=== PATIENT | male | born 1995 | race Hispanic/Latino ===

== ENCOUNTER 2022-01-06 22:39 | Inpatient (IN) | payer BC, OTHER, SELFPAY ==
[2022-01-07] MEDS ORDERED: Ringers Lactate 1,000 ML IV ONE ×3 (02:28→09:32)
[2022-01-07] MEDS ORDERED: NA CHLORIDE 0.9% 100 ML ONE (02:29)
[2022-01-07] MEDS ORDERED: PIPERACIL/TAZO 3.375 GM VIAL IV ONE (02:29)
[2022-01-07] MEDS ORDERED: HYDROMORPHONE HCL 1 MG/ML INJ ONE (02:32)
[2022-01-07] MEDS: PIPER TAZO 3.375 GM in NA CHLORIDE 0.9% 100 ML IV SCH ×3 (02:49→17:17)
[2022-01-07] MEDS: HYDROMORPHONE HCL 1 MG/ML INJ IV PRN ×3 (02:59→23:30)
[2022-01-07] MEDS ORDERED: Ringers Lactate 1,000 ML IV SCH (03:00)
[2022-01-07] MEDS ORDERED: CEFOXITIN SODIUM 1 GM/VIAL ONE (06:57)
[2022-01-07] MEDS ORDERED: SUCCINYLCHOLINE 20 MG/ML (10 ML) IV ONE (06:59)
[2022-01-07] MEDS ORDERED: propofoL 200 MG/20 ML VIAL IV ONE ×2 (07:03→07:18)
[2022-01-07] MEDS ORDERED: MIDAZOLAM HCL 2 MG/2 ML INJ ONE (07:03)
[2022-01-07] MEDS ORDERED: FENTANYL CITR 100 MCG/2 ML ONE ×2 (07:03→08:11)
[2022-01-07] MEDS ORDERED: ROCURONIUM 50 MG/5 ML VIAL IV ONE ×2 (07:03→07:51)
--- NOTE | 2022-01-07 07:03 | P.HP ---
Date of Service: 01/07/22 Chief complaint: Abdominal pain History of present Illness: 25-year-old gentleman comes in with diffuse abdominal pain which started 36 hours ago and now localizing to the right lower quadrant. Patient had 1 episode of vomiting and anorexia. Patient denies any diarrhea or constipation currently. Patient does not have blood in his stool or dysuria or hematuria. Patient denies sore throat, runny nose, headaches, dizziness, chest pain, fever or chills. Review of systems: Otherwise unremarkable Past medical history: Negative Past surgical history: Tonsillectomy and adenoidectomy Allergies: None Social history: Patient denies alcohol and tobacco use Family history: Diabetes and heart disease Vital signs: Stable, afebrile Physical exam: Awake alert oriented x3 Head and neck: Cranial nerves II through XII grossly within normal limits, no neck masses, no JVD, throat clear and neck supple Chest: Clear Heart: S1-S2 Abdomen: Soft, nondistended, positive bowel sounds with Rovsing's sign and right lower quadrant tenderness with rebound. No rigidity or guarding noted Extremity: Neurovascular intact, nontender Neuro: Nonfocal Diagnostic data: White count was 14,[address] of the abdomen and pelvis is consistent with acute appendicitis without evidence of perforation or abscess Assessment: Acute appendicitis Plan/recommendation: Admit, n.p.o., IV fluids, IV antibiotics and to the OR for laparoscopic appendectomy possible open. Patient understands risk, benefits and alternatives and agrees to procedure. CC:
[2022-01-07] MEDS ORDERED: NEOSTIGMINE 1 MG/ML -10 ML VIAL ONE (07:51)
[2022-01-07] MEDS ORDERED: GLYCOPYRROLATE 0.2 MG/ML SYR ONE (08:11)
[2022-01-07] MEDS ORDERED: KETOROLAC 30 MG/ML INJ ONE (09:16)
--- NOTE | 2022-01-07 09:49 | P.OP ---
Date of Service: 01/07/22 Preop diagnosis: Acute appendicitis Postop diagnosis: Acute suppurative retrocecal appendicitis Procedure performed: Diagnostic laparoscopy, open appendectomy Surgeon: Elvin Fisher MD Manager Trading: Vivian PETERSON Estimated blood loss: Minimal Specimen: Appendix Findings: As above Anesthesia: General Complications: None Drains: THONG #10 flat Fluids and blood products: Nonapplicable Disposition: Recovery room Operative note: Patient brought to the OR and placed in the supine position. General anesthesia begun. Patient prepped and draped in the usual sterile fashion. Marcaine 0.5% infiltrated locally. 15 blade used to make a 1 cm supraumbilical midline incision. Subcutaneous tissue divided and fascia identified and divided. #1 Vicryl stay suture placed.. Peritoneal cavity entered with sharp and blunt dissection. Pneumoperitoneum established. Then 5 mm trocar placed in the suprapubic region and in the left lower quadrant. Laparoscopy revealed acute suppurative fibrinous exudate on the small bowel near the cecum and the ileocecal valve. Minimal fluid was seen in the pelvis some dilatation of the small bowel. The appendix; however, could not be well visualized as it was retrocecal and leading towards medially. We could not mobilize the appendix adequately laparoscopically without risking injury to the cecum or the small bowel. Therefore, I made a decision to convert this into an open procedure. The tissue was very indurated and adhered to the sidewalls. A 8 cm McBurney's incision was made in the right lower quadrant. Marcaine 0.5% was infiltrated locally prior to the incision. The subcutaneous tissue was identified and divided. Fascia identified and divided. Muscle retracted out of the field of dissection. Peritoneal cavity entered by dividing the posterior sheath. Then sharp and blunt dissection utilized to mobilize the cecum and bring the ileocecal valve and the cecum as much as we could into the field of operation. The appendix was dilated, indurated and retrocecal with medial extension. Base of the appendix on the cecum was identified. Endo KENNETH stapling device was used to divide the mesoappendix as well as the base of the appendix. The appendix was removed and sent to pathology. Entire wound was irrigated, effluent was clear and there was no evidence of bleeding or bowel injury appreciated. As there was a lot of inflammation and extensive dissection was done in this area, I decided to place a John-Owens #10 flat into the right lower quadrant and pelvis. Then the posterior sheath was closed with 0 chromic. Fascia was closed with #2 nylon. Stay sutures at the umbilicus was closed by tying the Vicryl sutures together. All subcutaneous wounds irrigated and bleeding controlled cautery. 3-0 chromic used to reapproximate subcutaneous tissue and denae used to close skin. Sterile dressing applied. Patient awakened and taken to recovery room in good general condition. CC:
[2022-01-07] MEDS: HYDROMORPHONE HCL 1 MG/ML INJ ONE ×2 (09:57→10:06)
[2022-01-07] MEDS: Ringers Lactate 1,000 ML IV SCH ×2 (10:02→17:17)
[2022-01-07] MEDS: FENTANYL CITR 100 MCG/2 ML ONE ×2 (10:17→10:23)
[2022-01-07] MEDS: HYDROCODONE/APAP 7.5/325 MG TAB PO PRN (19:28)
[2022-01-07] MEDS ORDERED: ACETAMINOPHEN 500 MG TAB PO PRN (21:16)
[2022-01-08] MEDS: Ringers Lactate 1,000 ML IV SCH ×4 (00:01→19:59)
[2022-01-08] MEDS: HYDROMORPHONE HCL 1 MG/ML INJ IV PRN ×2 (03:28→23:30)
[2022-01-08 04:36] LABS: Absolute Lymphocytes (CBC) 1.5 K/uL (0.7-4.9); Hematocrit 41.1 % (39.6-49.0); Lymphocytes % 14.3 % (15.3-44.8); MPV 8.1 fL (7.6-11.3); RBC Red Blood Cell Count 4.93 M/uL (4.33-5.43)
[2022-01-08] MEDS: HYDROCODONE/APAP 7.5/325 MG TAB PO PRN ×4 (04:38→21:37)
[2022-01-08 04:54] LABS: Magnesium 1.9 mg/dL (1.8-2.4); Phosphorus 2.5 mg/dL (2.5-4.9); Potassium 3.4 mmol/L (3.5-5.1)
[2022-01-08] MEDS: PIPER TAZO 3.375 GM in NA CHLORIDE 0.9% 100 ML IV SCH ×4 (07:42→17:08)
[2022-01-08] MEDS ORDERED: POTASSIUM CL SA 10 MEQ TAB PO ONE ×2 (09:00→16:16)
--- NOTE | 2022-01-08 12:20 | PN ---
Date of Progress Note: 01/08/2022 Subjective: The patient is awake and alert, complains of pain when he is moving around. Otherwise, there is no pain. Tolerating his full liquid diet. His vitals are stable except for a slight increa se in the pulse rate of 107. He is afebrile currently. He did have fever last night. He was given Tylenol. Laboratory Data: Reviewed. His white count is 10.4, slight left shift. His potassium is slightly l ow which is being replaced. Objective: Abdomen: Soft, nondistended. Positive bowel sounds. Positive incisional tenderness. N o evidence of peritonitis. Please note THONG drain is putting out 40 cc of serosanguineous fluid and th e dressing is clean, dry, and intact. Assessment: Status post open appendectomy. Recommendations: Continue IV fluids, IV antibiotics, and advance diet as tolerated. Once the patien t is tolerating a regular diet, IV fluids can be tapered off. The patient was encouraged to ambulate . He needs incentive spirometry and continue DVT prophylaxis with SCDs and we will start the patient on Lovenox as well. /MODL Voice ID: [id number] Report ID: [id number]
[2022-01-08] MEDS: ONDANSETRON 4 MG/2 ML VIAL IV PRN (23:31)
[2022-01-09] MEDS: PIPER TAZO 3.375 GM in NA CHLORIDE 0.9% 100 ML IV SCH ×3 (00:48→16:10)
[2022-01-09] MEDS: Ringers Lactate 1,000 ML IV SCH ×3 (04:31→18:02)
[2022-01-09 04:56] LABS: Absolute Lymphocytes (CBC) 1.1 K/uL (0.7-4.9); Hematocrit 47.7 % (39.6-49.0); Lymphocytes % 7.7 % (15.3-44.8); MPV 8.8 fL (7.6-11.3); RBC Red Blood Cell Count 5.73 M/uL (4.33-5.43)
[2022-01-09 05:10] LABS: Potassium 3.9 mmol/L (3.5-5.1)
[2022-01-09] MEDS: ONDANSETRON 4 MG/2 ML VIAL IV PRN ×2 (06:01→20:45)
[2022-01-09] MEDS: HYDROMORPHONE HCL 1 MG/ML INJ IV PRN ×2 (06:06→20:45)
[2022-01-09] MEDS ORDERED: KCL 20 MEQ/100 mL IVPB 20 MEQ/100 ML BAG IV SCH (07:00)
[2022-01-09] MEDS: HYDROCODONE/APAP 7.5/325 MG TAB PO PRN (07:55)
--- NOTE | 2022-01-09 10:52 | P.PN ---
Date of Service: 01/09/22 Subjective: Patient is having nausea and vomiting. NG tube was placed and large amount of gastric contents were evacuated. Patient feels better. Objective: Vitals stable, afebrileWhite count is 14.2 and THONG has put out 540 cc of serosanguineous fluid. Abdomen: Soft, slightly distended, hypoactive bowel sounds with minimal tendern ess and no peritonitisdressing is clean dry and intact Assessment: Status post open appendectomy, with likely postop ileus Plan: N.p.o., and IV fluid, IV antibiotics, NG tube and we will check an abdominal x-ray. Encourage ambulation, incentive spirometry and DVT prophylaxis. CC:
--- NOTE | 2022-01-09 12:25 | RAD REPORT ---
EXAM DESCRIPTION: RAD - Abdomen W Erect - 01/09/2022 10:57 am CLINICAL HISTORY: Abdominal pain/vomiting FINDINGS: Nasogastric tube is present within the gastric fundus. Postsurgical changes right lower quadrant Several loops of small bowel are mildly dilated. Air within the colon is diminished. Given the recent surgery this probably represents an adynamic ileus and can be monitored on a subsequ ent examination if symptoms persist
[2022-01-10] MEDS: PIPER TAZO 3.375 GM in NA CHLORIDE 0.9% 100 ML IV SCH ×3 (00:43→16:36)
[2022-01-10] MEDS: Ringers Lactate 1,000 ML IV SCH ×3 (00:43→18:02)
[2022-01-10] MEDS: HYDROMORPHONE HCL 1 MG/ML INJ IV PRN ×3 (00:54→22:20)
[2022-01-10 06:04] LABS: Absolute Lymphocytes (CBC) 2.3 K/uL (0.7-4.9); Hematocrit 47.4 % (39.6-49.0); Lymphocytes % 15.9 % (15.3-44.8); MPV 8.1 fL (7.6-11.3); RBC Red Blood Cell Count 5.65 M/uL (4.33-5.43)
[2022-01-10 06:13] LABS: Potassium 3.6 mmol/L (3.5-5.1)
[2022-01-10] MEDS: ONDANSETRON 4 MG/2 ML VIAL IV PRN (07:22)
--- NOTE | 2022-01-10 08:19 | P.PN ---
Date of Service: 01/10/22 Subjective: Patient has NG tube in place. No nausea or vomiting. Patient has not passed gas. Objective: Vitals stable, afebrileWhite count is 14.3 and THONG has put out 350 cc of serosanguineous fluid. NG output fairly large at this time. Abdominal x- ray reviewed. Abdomen: Soft, slightly distended, hypoactive bowel sounds with minimal tenderness and no peritonitisdressing is clean dry and intact Assessment: Status post open appendectomy, with postop adynamic ileus Plan: N.p.o., and IV fluid, IV antibiotics, NG tube and we will check an abdominal x-ray today. Encourage ambulation, incentive spirometry and DVT prophylaxis. Start Protonix. When the patient's clinical condition improves, we will clamp the NG tube and start clear liquid diet. CC:
--- NOTE | 2022-01-10 08:51 | RAD REPORT ---
EXAM DESCRIPTION: RAD - Abdomen W Erect - 01/10/2022 8:42 am CLINICAL HISTORY: Follow up ileus COMPARISON: Abdomen W Erect dated 01/09/2022 FINDINGS/IMPRESSION: Mild worsening of the presumed ileus with increased gaseous distention of the s mall bowel. Multiple air-fluid levels are present. Surgical drain in the right lower quadrant.
[2022-01-10] MEDS: PANTOPRAZOLE 40 MG INJ IVP SCH (08:53)
[2022-01-10] MEDS: SODIUM CHLORIDE 0.9% 10ML INJ IV SCH (08:53)
[2022-01-10] MEDS ORDERED: KCL 20 MEQ/100 mL IVPB 20 MEQ/100 ML BAG IV SCH (09:00)
[2022-01-10] MEDS ORDERED: POTASSIUM CL SA 10 MEQ TAB PO ONE (09:00)
[2022-01-11] MEDS: PIPER TAZO 3.375 GM in NA CHLORIDE 0.9% 100 ML IV SCH ×3 (00:25→17:47)
[2022-01-11] MEDS: Ringers Lactate 1,000 ML IV SCH ×4 (00:26→23:03)
[2022-01-11 04:08] LABS: Absolute Lymphocytes (CBC) 1.8 K/uL (0.7-4.9); Hematocrit 40.2 % (39.6-49.0); Lymphocytes % 14.8 % (15.3-44.8); RBC Red Blood Cell Count 4.86 M/uL (4.33-5.43)
[2022-01-11 04:17] LABS: Potassium 3.2 mmol/L (3.5-5.1)
--- NOTE | 2022-01-11 08:09 | RAD REPORT ---
EXAM DESCRIPTION: RAD - Abdomen W Erect - 01/11/2022 6:28 am CLINICAL HISTORY: follow up ileus Pain COMPARISON: Abdomen W Erect dated 01/10/2022; Abdomen W Erect dated 01/09/2022 FINDINGS: Multiple prominent small bowel loops are again noted in the central abdomen. The small bow el loops remain dilated and appear stacked/organized. This raises the possibility of mechanical small -bowel obstruction given the appearance. Nasogastric tube is in the stomach. Right lower quadrant carmine in also present.
[2022-01-11] MEDS: SODIUM CHLORIDE 0.9% 10ML INJ IV SCH (09:00)
[2022-01-11] MEDS: PANTOPRAZOLE 40 MG INJ IVP SCH (09:01)
[2022-01-11] MEDS: KCL 20 MEQ/100 mL IVPB 20 MEQ/100 ML BAG IV SCH ×2 (09:02→10:24)
[2022-01-11] MEDS: HYDROMORPHONE HCL 1 MG/ML INJ IV PRN ×3 (09:12→21:58)
--- NOTE | 2022-01-11 09:55 | P.PN ---
Date of Service: 01/11/22 Subjective: Patient is passing gas and has had bowel movement. Patient's NG tube was clamped last night and patient was able to tolerate sips of clear liquids with minimal residual output. Objective: Vitals stable, afebrileWhite count is 12 and THONG has put out 100 cc of serosanguineous fluid over the last shift. Abdominal x-ray reviewed and it shows possible obstruction. Abdomen: Soft, nondistended, nontender with positive bowel soundsdressing is clean dry and intact. Wound is clean dry and intact Assessment: Status post open appendectomy, with postop adynamic ileus possible obstruction Plan: As the x-ray is concerning for obstruction, we will get a small bowel series. Continue IV antibiotics. Encourage ambulation and incentive spirometry. I will be transferring the care of this patient to Dr. Kinney as I am leaving [facility]. Details of this case were discussed with Dr. Kinney. We will make further recommendation after the small bowel series is done. If the patient does not open up soon, patient may require parenteral nutrition. CC:
--- NOTE | 2022-01-11 17:17 | RAD REPORT ---
EXAM DESCRIPTION: RAD - Small Bowel Series - 01/11/2022 3:29 pm CLINICAL HISTORY: R/O Obstruction COMPARISON: No comparisons FINDINGS: Contrast administered through the patient's NG tube. The contrast did not progress beyond the dilated small bowel at the 90 minutes [place]. The small bowel remain dilated. In character tube in the stomach Surgical drain in the right lower quadrant. No fluoroscopy was performed. Total images acquired: 11 IMPRESSION: Persistently dilated small bowel. The contrast proceeded very slowly. At 90 minutes, the decision was made to return the patient to the floor. The patient should have an abdominal radiograp h tomorrow morning to assess for any forward movement of contrast in order to exclude a bowel obstruc tion.
[2022-01-11] MEDS: ONDANSETRON 4 MG/2 ML VIAL IV PRN (21:59)
[2022-01-11] MEDS ORDERED: KCL 20 MEQ/100 mL IVPB 20 MEQ/100 ML BAG IV SCH (23:00)
[2022-01-12] MEDS: PIPER TAZO 3.375 GM in NA CHLORIDE 0.9% 100 ML IV SCH ×3 (01:09→17:16)
[2022-01-12 04:04] LABS: Absolute Lymphocytes (CBC) 1.8 K/uL (0.7-4.9); Hematocrit 42.1 % (39.6-49.0); Lymphocytes % 12.6 % (15.3-44.8); MPV 7.8 fL (7.6-11.3); RBC Red Blood Cell Count 5.03 M/uL (4.33-5.43)
[2022-01-12 04:15] LABS: Magnesium 2.1 mg/dL (1.8-2.4); Phosphorus 3.4 mg/dL (2.5-4.9); Potassium 3.5 mmol/L (3.5-5.1)
[2022-01-12 05:28] LABS: Blood Morphology Comment NOT SEEN (NOT SEEN); Platelet Estimate ADEQ
[2022-01-12] MEDS: HYDROCODONE/APAP 7.5/325 MG TAB PO PRN ×2 (06:44→18:34)
[2022-01-12] MEDS ORDERED: KCL 20 MEQ/100 mL IVPB 20 MEQ/100 ML BAG IV SCH (07:00)
--- NOTE | 2022-01-12 07:54 | RAD REPORT ---
EXAM DESCRIPTION: RAD - Abdomen 1 View (KUB) - 01/12/2022 7:41 am CLINICAL HISTORY: f/u from 01/11 exam COMPARISON: Small Bowel Series dated 01/11/2022 FINDINGS: No significant antegrade movement of enteric contrast within the small bowel which remains significantly dilated. Surgical drain in the right lower quadrant. IMPRESSION: Minimal progression of enteric contrast compared with the exam from yesterday. This eith er represents a high-grade bowel obstruction or severe ileus.
[2022-01-12] MEDS: Ringers Lactate 1,000 ML IV SCH ×2 (08:38→17:17)
[2022-01-12] MEDS: PANTOPRAZOLE 40 MG INJ IVP SCH (08:39)
[2022-01-12] MEDS: SODIUM CHLORIDE 0.9% 10ML INJ IV SCH (08:42)
[2022-01-13] MEDS: PIPER TAZO 3.375 GM in NA CHLORIDE 0.9% 100 ML IV SCH (01:41)
[2022-01-13] MEDS: Ringers Lactate 1,000 ML IV SCH ×4 (02:04→21:44)
[2022-01-13] MEDS: HYDROCODONE/APAP 7.5/325 MG TAB PO PRN ×3 (02:14→15:20)
[2022-01-13] MEDS: PANTOPRAZOLE 40 MG INJ IVP SCH (08:05)
[2022-01-13] MEDS: SODIUM CHLORIDE 0.9% 10ML INJ IV SCH (08:05)
--- NOTE | 2022-01-13 08:47 | P.PN ---
Subjective Date of Service: 01/12/22 Subjective: Ambulating, Other (passing flatus) Review of Systems General: Fever (no) Respiratory: Unremarkable Gastrointestinal: Distention, As per HPI Genitourinary: Unremarkable Integumentary: Unremarkable Physical Examination - Vital Signs Temperature: 97.5 F Blood Pressure: 148/71 Pulse: 83 Respirations: 16 Pulse Ox (%): 97 - Physical Exam General: Alert, In no apparent distress, Oriented x3, Cooperative HEENT: PERRLA, EOMI Neck: Supple Cardiovascular: No edema, Normal pulses Gastrointestinal: Hypoactive, Distended Musculoskeletal: No erythema, No tenderness, No warmth Integumentary: No rashes, No breakdown, No erythema, No warmth, No cyanosis Neurological: Normal speech - Studies Laboratory Data (last 24 hrs) 01/13/22 05:53: Sodium 135 L, Potassium 4.0, BUN 11, Creatinine 0.65, Glucose 95 Imagings Data: Xray reviewed Assessment And Plan - Plan xray tomorrow if improvemyt then d/c NGT 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 KIMMY robinsx
--- NOTE | 2022-01-13 12:13 | RAD REPORT ---
EXAM DESCRIPTION: RAD - Abdomen Single View - 01/13/2022 10:36 am CLINICAL HISTORY: ileus Recent open appendectomy COMPARISON: Small Bowel Series dated 01/11/2022; Abdomen 1 View (KUB) dated 01/12/2022 FINDINGS: Skin denae and drain tube are in place in the right lower quadrant. Patient has multiple dilated air and contrast filled small bowel loops. Severity of the small bowel dilatation is similar to the prior day study. Contrast material stays within the lumen of the bowel. There has been antegr laine movement of contrast with contrast scattered in nondilated colon down to the level of the distal rectum. Contrast remains as well and distal small bowel loops. No pneumatosis or abnormal free air co llection. IMPRESSION: Numerous dilated small bowel loops remain with the severity of dilatation similar to the prior day study. Antegrade movement of the remnant small bowel contrast is seen. There is contrast scattered in the co tete from cecum to distal rectum. No abnormal free air collection. No extravasation of the PO contrast outside of the bowel lumen.
--- NOTE | 2022-01-13 18:57 | PN ---
Date of Progress Note: 01/13/2022 This is covering for Dr. Fisher who is out of town at this moment. Subjective: Mr. Torres is a 26-year-old patient who has appendectomy done with severe inflammation to the point that he has to have an open surgery. He developed postoperative ileus. He feels bryn r. He says he is passing gas, having some bowel movement at present, although when we compared that his progress with the x-rays, they really do not match. The NG tube is minimal, if any. No fever. No shortness of breath. No chest pain. The patient ambulating. Objective: Chest: Clear. Abdomen: Soft and depressible. Intact surgical site. THONG clear. Extremities: Good capillary refill. Laboratory Data: Blood Work: WBC count is 14.0 with hemoglobin of 14. Potassium is 4.0. X-ray reviewed with the patient. Assessment: A 26-year-old patient with a postoperative ileus. THONG drain is clear. He is afebrile. He is passing flatus, but his x-ray shows his intestines are not moving at the speed we want, althoug h they are moving. He does not want an NG tube anymore since it is not putting anything out. We are going to remove it, knowing that if he starts vomiting, we may have to reposition that again. He is cooperating with ambulation. We are going to continue the antibiotics. He is tolerating a liquid d iet. CRISTINE/KARL Voice ID: [id number] Report ID: [id number]
[2022-01-14] MEDS: HYDROCODONE/APAP 7.5/325 MG TAB PO PRN ×3 (05:18→22:00)
[2022-01-14] MEDS: Ringers Lactate 1,000 ML IV SCH ×4 (05:19→20:29)
[2022-01-14] MEDS: PANTOPRAZOLE 40 MG INJ IVP SCH (07:52)
[2022-01-14] MEDS: SODIUM CHLORIDE 0.9% 10ML INJ IV SCH (07:53)
--- NOTE | 2022-01-14 08:51 | RAD REPORT ---
EXAM DESCRIPTION: RAD - Abdomen Single View - 01/14/2022 6:50 am CLINICAL HISTORY: Abdomen pain FINDINGS: Contrast is present within decompressed colon. The caliber of the small bowel has diminished. It is mildly to moderately dilated. These findings may indicate an improvement ileus or partial small bowel obstruction.
--- NOTE | 2022-01-14 14:09 | PN ---
Date of Progress Note: 01/14/2022 Diagnosis: Suppurative appendicitis. Subjective: I am covering for Dr. Fisher, who is out of town at this moment. The patient has also po stoperative ileus. The patient is improving, passing gas, having bowel movement, and ambulating. No nausea. No vomiting. NG tube was removed yesterday. Objective: Vital Signs: Currently afebrile. Chest: Clear. Abdomen: Intact surgical site. Extremities: Good capillary refill. Laboratory Data: Blood work is still pending. X-rays were reviewed. We see some improvement on the imaging. Plan: We are going to advance to full liquid diet, ambulation, and IV antibiotics. Repeat x-ray in the morning. CRISTINE/KARL Voice ID: [id number] Report ID: [id number]
[2022-01-15 03:59] LABS: Hematocrit 41.4 % (39.6-49.0); Lymphocytes % 21.4 % (15.3-44.8); MPV 7.5 fL (7.6-11.3); RBC Red Blood Cell Count 4.97 M/uL (4.33-5.43)
[2022-01-15 04:09] VITALS: BMI 38.1
[2022-01-15 04:09] LABS: Potassium 3.5 mmol/L (3.5-5.1)
[2022-01-15] MEDS: Ringers Lactate 1,000 ML IV SCH ×4 (04:14→19:37)
[2022-01-15] MEDS: PANTOPRAZOLE 40 MG INJ IVP SCH (07:43)
[2022-01-15] MEDS: SODIUM CHLORIDE 0.9% 10ML INJ IV SCH (07:44)
[2022-01-15] MEDS ORDERED: POTASSIUM CL SA 10 MEQ TAB PO ONE (09:00)
--- NOTE | 2022-01-15 23:37 | PN ---
Date of Progress Note: 01/15/2022 Diagnosis: Status post suppurative appendicitis, appendectomy with postoperative ileus. Covering for Dr. Fisher. Subjective: The patient is doing better. Passing flatus. No shortness of breath. No chest pain. Starting to tolerate more diet. Objective: Chest: Clear. Abdomen: Soft and depressible. Bowel sounds positive. Intact surgical site. Extremities: Good capillary refill. Laboratory Data: Blood work finally came down to normal at 9.3 with hemoglobin of 14.0. Plan: We are going to advance diet to soft diet, ambulation. If he continued to be afebrile, then marisa harris may be able to go home tomorrow, if he tolerates diet and clinically better. CRISTINE/KARL Voice ID: [id number] Report ID: [id number]
[2022-01-16] MEDS: Ringers Lactate 1,000 ML IV SCH (03:36)
--- NOTE | 2022-01-16 08:01 | RAD REPORT ---
EXAM DESCRIPTION: RAD - Abdomen Single View - 01/16/2022 6:43 am CLINICAL HISTORY: ileus f/u Pain COMPARISON: Abdomen Single View dated 01/14/2022 FINDINGS: Several mildly prominent small bowel loops are seen in the left upper quadrant, improved m oderately since 01/14/2022. Most of the colonic contrast has been cleared. No free air seen. IMPRESSION: Moderate improvement in ileus pattern seen since comparative study.
[2022-01-16 08:12] VITALS: BP 140/66; TEMP 97.4
[2022-01-16] MEDS: SODIUM CHLORIDE 0.9% 10ML INJ IV SCH (08:29)
[2022-01-16] MEDS: PANTOPRAZOLE 40 MG INJ IVP SCH (08:29)
[2022-01-16 09:38] VITALS: O2SAT 100
--- NOTE | 2022-01-16 13:53 | DS ---
Date of Discharge: 01/16/2022 Hospital Course: I am covering for Dr. Fisher, who is out of town at this moment, who is the main osiel geon of the case. Status post open appendectomy, laparotomy, peritonitis, acute appendicitis, and po stoperative ileus. Review of Systems: No shortness of breath. No chest pain. No fever. No dysuria. No melena. No diarrhea. Tolerating diet good. Physical Examination: General: The patient is awake, alert. Chest: Clear. Abdomen: Soft and depressible. Intact surgical site. THONG drain serosanguineous. Extremities: Good capillary refill. Laboratory Data: Blood work shows WBC count of 9.3. X-rays of the abdomen, a lot of improvement fro m previous x-rays. Plan: The patient is tolerating diet without any problems, had a bowel movement, passing flatus, amb ulating, afebrile. He wants to go home. The patient will be sent home with p.o. antibiotics, pain m edication. Follow with Dr. Fisher in a week. He is going to keep the THONG drain. He is going to be se nt home with that and he is going to follow with Dr. Fisher in a week. If he cannot, he was encourage d to come to our office. No heavy lifting, no more than 20 pounds. May take a shower with dressings off. CRISTINE/KARL Voice ID: [id number] Report ID: [id number]
== END 2022-01-16 10:55 | disposition home or self-care (01) | DRG 342 ==
LOC: 4TH 01-07 02:22 → OBSVTOIN 01-07 19:01
PROVIDERS: ADMIT Surgery; ATTEND Surgery
PROC: 0WJG4ZZ Inspection of Peritoneal Cavity, Percutaneous Endoscopic Approach (ICD-10-PCS; 2022-01-07)
PROC: 0DTJ0ZZ Resection of Appendix, Open Approach (ICD-10-PCS; principal; 2022-01-07 07:00)
DX: K35.80 Unspecified acute appendicitis (principal); K91.89 Other postprocedural complications and disorders of digestive system; K56.7 Ileus, unspecified; E66.01 Morbid (severe) obesity due to excess calories; Z68.38 Body mass index [BMI] 38.0-38.9, adult
CPT/HCPCS: 36415; 74018; 74019; 74250; 80048; 83605; 83735; 84100; 84132; 85025; 88304; 94010; 97116; 97161; 97530; C9113; G0378; G0379; J0330; J0694; J1170; J2250; J2405; J2543; J2704; J2710; J3010; J3480; J7120